=== PATIENT | male | born 1960 | race Caucasian/White ===

== ENCOUNTER 2019-02-04 09:55 | Emergency (ER) | payer SELFPAY ==
[~2019-02-04] VITALS: Ht 170.2 cm; Wt 86.0 kg
[2019-02-04 10:05] VITALS: BP 120/74
[2019-02-04] MEDS ORDERED: DIPH,PERTUSS(ACELL),TET VAC/PF 0.5 ML IM-VACC ONE ×2 (10:30→10:33)
[2019-02-04] MEDS ORDERED: BACITRACIN ZINC OINT 500U/GM, 0.9 GM ONE (10:33)
[2019-02-04 10:55] LABS: ALBUMIN 3.6 g/dL (3.4-5.0); ANION GAP 6 mmol/L (5-15); CALCIUM 8.5 mg/dL (8.5-10.1); CHLORIDE 108 mmol/L (98-107)
[2019-02-04 11:18] LABS: BASOPHILS # (AUTO) 0.02 x10^3/uL (0-0.1); BASOPHILS % (AUTO) 0 % (0-1); EOSINOPHILS # (AUTO) 0.14 x10^3/uL (0-0.4); EOSINOPHILS % (AUTO) 2 % (1-7); LYMPHOCYTES % (AUTO) 25 % (22-44); MD NO; MEAN CORPUSCULAR HEMOGLOBIN 30.9 pg (27.5-34.5); MEAN CORPUSCULAR HGB CONC 33.9 g/dL (33.2-36.2); MEAN CORPUSCULAR VOLUME 91.2 fL (81-97); MEAN PLATELET VOLUME 7.3 fL (7.4-10.4); MONOCYTES % (AUTO) 7 % (2-9); NEUTROPHILS # (AUTO) 5.18 x10^3/uL (1.8-6.8); NEUTROPHILS % (AUTO) 67 % (42-75); PLATELET COUNT 280 x10^3/uL (130-400); RED BLOOD COUNT 5.02 x10^6/uL (4.38-5.82); RED CELL DISTRIBUTION WIDTH 13.2 % (9.4-14.8)
== END 2019-02-04 11:46 | disposition home or self-care (01) ==
LOC: ED 11:30
DX: S61.241A Puncture wound with foreign body of left index finger without damage to nail, initial encounter (principal); L03.114 Cellulitis of left upper limb; R73.9 Hyperglycemia, unspecified; F17.200 Nicotine dependence, unspecified, uncomplicated; X58.XXXA Exposure to other specified factors, initial encounter; Y93.89 Activity, other specified; Y92.009 Unspecified place in unspecified non-institutional (private) residence as the place of occurrence of the external cause; Y99.8 Other external cause status
CPT/HCPCS: 36415; 80048; 82040; 85025; 90471; 90715

== ENCOUNTER 2021-06-18 16:12 | Emergency (ER) | payer SELFPAY ==
[~2021-06-18] VITALS: Ht 172.7 cm; Wt 85.1 kg
[2021-06-18 16:35] VITALS: BP 127/79
[2021-06-18] MEDS ORDERED: FLUORESCEIN OPHTHALMIC 1 MG STRIP EACHEYE ONE (17:00)
[2021-06-18] MEDS ORDERED: PROPARACAINE OPHTH 0.5%, 15ML EACHEYE ONE (17:00)
[2021-06-18] MEDS ORDERED: FLUORESCEIN OPHTHALMIC 1 MG STRIP ONE (17:24)
[2021-06-18] MEDS ORDERED: PROPARACAINE OPHTH 0.5%, 15ML ONE (17:24)
[2021-06-18] MEDS ORDERED: ERYTHROMYCIN OPHTH 0.5%, 1GM OP ONE (19:00)
== END 2021-06-18 19:14 | disposition home or self-care (01) ==
LOC: ED 19:05
DX: T15.01XA Foreign body in cornea, right eye, initial encounter (principal); F17.200 Nicotine dependence, unspecified, uncomplicated; X58.XXXA Exposure to other specified factors, initial encounter; Y93.89 Activity, other specified; Y92.89 Other specified places as the place of occurrence of the external cause; Y99.8 Other external cause status
CPT/HCPCS: 65222; 99284